=== PATIENT | female | born 1995 | race Caucasian/White ===

== ENCOUNTER → 2018-02-08 | Outpatient (REF) ==
[2018-02-08 18:25] LABS: THYROXINE (T4)-TOTAL 9.4 ug/dL (5.5-11.0)
[2018-02-08 18:38] LABS: THYROID STIMULATING HORMONE 1.22 uIU/mL (0.465-4.680)
== END ==
LOC: ZLAB.WCH 17:54
PROVIDERS: Family Medicine
DX: Z01.89 Encounter for other specified special examinations (principal)